=== PATIENT | female | born 1980 | race Caucasian/White ===

== ENCOUNTER 2017-01-03 10:48 | Outpatient (CLI) | payer OTHER ==
--- NOTE | 2017-01-03 14:02 | MRI Report ---
EXAM: LEFT KNEE MRI WITHOUT CONTRAST EXAM DATE: 01/03/2017 11:30 AM. CLINICAL HISTORY: LEFT KNEE PAIN. COMPARISON: None. TECHNIQUE: Multiplanar, multisequence T1-weighted and fluid-sensitive sequences of the knee without c ontrast. Other: None. FINDINGS: Cruciate ligaments: Anterior and posterior cruciate ligaments appear intact. Medial meniscus: Intact. No tear is identified. Lateral meniscus: Intact. No tear is identified. Collateral ligaments: The medial and fibular collateral ligaments appear intact. Bones and articular surfaces: Mild heterogenous signal in the patellar articular cartilage with some cartilage thinning at the lower aspect of the lateral facet. Mild cartilage thinning and superficial fissuring in the medial compartment. Marrow signal appears normal. Extensor mechanism: The patellar tendon and quadriceps insertion appear intact. Some edema and thicke ashley at the central aspect of the distal quadriceps insertion. Edema within the suprapatellar quadric eps fat pad. Miscellaneous: There is a small amount of soft tissue edema interposed between the lateral femoral co ndyle and the overlying iliotibial band. IMPRESSION: 1. Mild degenerative cartilage changes in the medial and patellofemoral compartments. 2. Soft tissue edema deep to the iliotibial band suggesting iliotibial band friction. 3. Mild focal tendinosis at the quadriceps insertion. 4. Small edema within the suprapatellar quadriceps fat pad suggesting fat pad impingement. [facility] MUSCULOSKELETAL RADIOLOGY SECTION Referring Provider Line: [phone] SITE ID: [id number]
== END 2017-01-03 10:49 | disposition home or self-care (01) ==
LOC: DI 10:48
DX: M23.92 Unspecified internal derangement of left knee (principal); M67.962 Unspecified disorder of synovium and tendon, left lower leg; R60.0 Localized edema

== ENCOUNTER 2018-11-10 07:22 | Day surgery (SDC) | payer OTHER ==
[2018-11-10] MEDS ORDERED: cefTRIAXone 2 GM VIAL ONE (07:25)
[2018-11-10] MEDS ORDERED: LACTATED RINGERS 1,000 ML IV ONE (07:30)
--- NOTE | 2018-11-10 07:41 | ANESTHESIA ---
Pre-Anesthesia VS, & Labs - Diagnosis left shoulder biceps tendinitis, labral tear - Procedure left shoulder arthroscopy, labral repair Vital Signs: Temp Pulse Resp BP Pulse Ox 36.6 C 62 16 120/76 96 11/10/18 07:31 11/10/18 07:31 11/10/18 07:31 11/10/18 07:31 11/10/18 07:31 Height 5 ft 2 in Weight (kg) 78.02 kg - NPO >8 hours - Is Patient ?: No Home Medications and Allergies Norgestimate-Ethinyl Estradiol [Ortho Tri-Cyclen 28 Tablet] 1 each PO DAILY 06/10/16 Allergies/Adverse Reactions: Allergies Allergy/AdvReac Type Severity Reaction Status Date / Time No Known Drug Allergies Allergy Verified 11/10/18 07:37 Anes History & Medical History - Anesthetic History Anesthesia Complications: reports: No previous complications Family history of Anesthesia Complications: Reports (nausea) Family history of Malignant Hyperthermia: Denies - Medical History Cardiovascular: reports: None Pulmonary: reports: None Gastrointestinal: reports: None Urinary: reports: None Musculoskeletal: reports: Other Endocrine/Autoimmune: reports: None Skin: reports: None - Surgical History Orthopedic: Shoulder arthroplasty Exam General: Alert, Oriented x3, Cooperative, No acute distress Dental: Other (chipped tooth) Mouth Openin Fingerbreadth Neck Mobility: Normal Mallampati classification: II Thyromental Distance: 4-6 cm Respiratory: Lungs clear, Normal breath sounds, No respiratory distress, No accessory muscle use Cardiovascular: Regular rate, Normal S1, Normal S2, No murmurs Mental/Cognitive Status: Alert/Oriented X3, Normal for patient Plan Anesthesia Type: General Consent for Procedure(s) Verified and Reviewed: No Code Status: Attempt Resuscitation ASA classification: 1-Healthy patient Is this case an emergency?: No
[2018-11-10] MEDS ORDERED: BUPIVACAINE 0.25% PF 10 ML VIAL ONE (07:47)
[2018-11-10] MEDS ORDERED: EPINEPHrine 1 MG/ML AMP ONE ×2 (07:47)
[2018-11-10 07:57] LABS: HCG UR QUAL NEGATIVE
[2018-11-10] MEDS ORDERED: BUPIVACAINE 0.5% PF 30 ML VIAL ONE (08:22)
[2018-11-10] MEDS ORDERED: MIDAZOLAM 2 MG/2 ML VIAL ONE (08:42)
[2018-11-10] MEDS ORDERED: ACETAMINOPHEN 1,000 MG/100 ML 100 ML IV ONE (09:53)
[2018-11-10] MEDS ORDERED: LIDOCAINE-MPF 2% 5 ML VIAL IM ONE (09:53)
[2018-11-10] MEDS ORDERED: ONDANSETRON 4 MG/2 ML VIAL IVP ONE (09:53)
[2018-11-10] MEDS ORDERED: fentaNYL 100 MCG/2 ML VIAL IVP ONE (09:53)
[2018-11-10] MEDS ORDERED: ROCURONIUM 50 MG/5 ML VIAL IVP ONE (09:53)
[2018-11-10] MEDS ORDERED: ceFAZolin 2 GM/50 ML 2 GM/50 ML BAG IV ONE (09:53)
[2018-11-10] MEDS ORDERED: PROPOFOL 200 MG/20 ML VIAL IVP ONE (09:53)
[2018-11-10] MEDS ORDERED: ePHEDrine 50 MG/ML VIAL IVP ONE (09:53)
[2018-11-10] MEDS ORDERED: BUPIVACAINE 0.25% PF 30 ML VIAL SUBQ ONE (11:25)
[2018-11-10] MEDS ORDERED: ONDANSETRON 4 MG/2 ML VIAL IVP PRN (11:53)
[2018-11-10] MEDS ORDERED: oxyCODONE 5 MG TABLET PO PRN (11:53)
--- NOTE | 2018-11-10 12:04 | OPERATIVE REPORT ---
Operative Report - Other Other Information/Narrative: Date of Surgery: 10 November 2018 Pre-Op Diagnosis: Left acromioclavicular joint arthritis, biceps tendinitis, subacromial impingement syndrome Procedure: Left shoulder arthroscopy with intra-articular labral debridement, open biceps tenodesis, open distal clavicle excision, subacromial decompression Postop Diagnosis: Same Primary Surgeon: Chad Trevino Secondary Surgeon: Car Santoyo Complications: None EBL: 25 cc IMPLANTS: Arthrex fiber tack POSTOPERATIVE PLAN: 0-2 weeks-Sling at all times. Pendulum exercises 5 times per day. 2-6 weeks-Passive and active range of motion without limitations. No active flexion of the elbow 6-12 weeks-Gradually increase strengthening focusing on rotator cuff and scapular stabilizers. 16 weeks and beyond-Introduce dynamic activities. EXAMINATION UNDER ANESTHESIA: ROM: Abduction of 160, forward flexion of 170, external rotation to 70 Anterior load and shift: Grade 1 generalized laxity Posterior load and shift: Grade 1 generalized laxity Inferior sulcus: Grade 1 generalized laxity ARTHROSCOPIC FINDINGS: Rotator interval: Intact Biceps tendon & SLAP: Medial sling appeared disrupted, SLAP tear was present. The biceps was taken and the SLAP tear was debrided Subscapularis: Intact Rotator Cuff: Slight fraying on the articular side. Bursal side was intact HAGL: None Labrum: Eagar complex was seen anteriorly. No anterior, inferior, posterior labral tears were seen. SLAP tear extended slightly posterior and this was debrided Glenoid Cartilage: Intact Humeral Head Cartilage: Intact INDICATION FOR SURGERY: 38-year-old female with insidious onset left shoulder pain consistent with subacromial impingement AC joint arthritis and biceps tendinitis. Her anterior pain was nearly completely resolved with the biceps tendon sheath injection. She is the spouse of a [employer] person and will be leaving the area in January. Nonoperative managment failed to resolve symptoms. The risks, benefits, and alternatives were discussed. Risks included pain, bleeding, infection, damage to nearby structures, lack of symptom relief, implant complications, stiffness, need for further surgeries, DVT, PE, stroke, and even . The patient signed a written consent form. PROCEDURE IN DETAIL: The patient was met in the preoperative holding on the day of the procedure. Operative extremity was signed. Consent was verified. The patient desired to proceed. Regional anesthesia was obtained in the preoperative area. The patient was brought to the operating room and surrendered to anesthesia. Once general anesthesia was obtained the patient was placed in the beach chair position. A soft kidney pad was placed. The head was secured with the neck in a neutral position. The shoulder and arm were prepped and draped in the standard fashion. A surgical timeout was held to confirm the patient identity, procedure, procedure, laterality, allergies, images, and antibiotics. All were in agreement we proceeded. A standard diagnostic arthroscopy was performed utilizing posterior and anteros uperior portals. The anterosuperior portal was created under direct visualization and localized with a spinal needle. The 7 mm cannula was placed anteriorly. The findings of the diagnostic arthroscopy can be found above. A biter was used to take the biceps tendon at its insertion into the Labrum. A shaver was then used to debride the stump back to a stable base. I then used the shaver to debride the SLAP lesion back to a stable base. I then completed the diagnostic arthroscopy by placing the scope anteriorly. SUBACROMIAL DECOMPRESSION: The instruments and cannula were then removed from the glenohumeral joint. The scope trocar was placed in the posterior portal and the acromion was felt. It was then inserted just under the acromion scraping along the bone until the CA ligament was felt. The scope trocar was then brought just lateral to the CA ligament and out the anterior incision. The cannula was then brought over the scope trocar arthroscope were inserted. The arthroscope was backed up until the shaver and arthroscope in the subacromial space. I then systemically debrided the bursa using a sucker shaver and radiofrequency ablation wand. A direct lateral incision was made and the bursectomy and decompression was completed through the lateral incision. All soft tissue was debrided from the underside of the acromion and the posterior edge of the CA ligament was lifted. Care was taken to keep the deltoid fascia intact. The rotator cuff was then evaluated and there was no full-thickness tear. The shaver was used and bur mode and I systematically removed the u nderside of the curved acromion and smoothed all prominences. Final images were taken MINI OPEN BICEPS TENODESIS: A 5 cm incision was made near the axillary fold centered over the pectoralis major tendon. Electrocautery was used to obtain hemostasis. The fascia was opened with dissection scissors. Blunt digital dissection was used to identify the intertubercular groove just under the pectoralis major tendon. The long head of the biceps tendon was visualized within this interval. The short head of the biceps was retracted with my finger and the right angle was used to deliver the tendon of the long head of the biceps out of the wound. A perez elevator was then used to debride all synovial tissue from the intertubercular groove. A fibertack was placed high within the groove. Both limbs of the fibertack were pulled on and it was well fixed. I then whipstitched the biceps tendon starting 2 cm proximal to the musculotendinous junction down to the musculotendinous junction and back up to the same 2 cm location with a single limb of the suture tack. The other suture was placed once through the tendon at the 2 cm location. I then cut all excess tendon off. The suture limb that was passed the single time was then pulled on and this reduced the tendon nicely into the groove. The elbow was fully straightened and there was no excess tension on the repair site. I then tied 7 reverse half hitches alternating to secure the tendon in its place. The wound was then irrigated copiously. OPEN DISTAL CLAVICLE EXCISION: A 5 cm incision was made in line with the clavicle, centered over the acromioclavicular joint. Electrocautery was used to obtain hemostasis. Full-thickness skin flaps were made at the level of the fascia/joint capsule. A full-thickness longitudinal was made longitudinally to open the acromioclavicular joint. Electrocautery was used to dissect the joint capsule from the bony surfaces. 2 Homans were placed around the distal clavicle. Rongeur was used to debride the intra-articular disc. A 10 mm resection was measured and performed with a sagittal saw. Care was taken to ensure this cut was parallel to the joint surface. All sharp bony edges were rounded. A finger was placed with into the defect and the arm was adducted fully without any impingement in the joint. The joint was then irrigated copiously. A watertight capsular and fascial closure was performed with 0 Vicryl. The portal sites were then closed with 3-0 Monocryl buried. The incisions for open procedures were closed with 2-0 Vicryl in the dermis and a running 3-0 Monocryl in the skin. Mastisol and Steri-Strips were applied. A sterile dressing and a sling was applied. The patient was awakened and transferred to the recovery room.
[2018-11-10] MEDS ORDERED: ONDANSETRON 4 MG/2 ML VIAL ONE (12:35)
[2018-11-10 13:12] VITALS: BP 121/79
[2018-11-10] MEDS ORDERED: oxyCODONE 5 MG TABLET ONE (13:24)
== END 2018-11-10 07:23 | disposition home or self-care (01) ==
LOC: SDS 07:22
PROVIDERS: ATTEND Orthopaedic Surgery
PROC: 0LS20ZZ Reposition Left Shoulder Tendon, Open Approach (ICD-10-PCS; 2018-11-10)
PROC: 0PBB0ZZ Excision of Left Clavicle, Open Approach (ICD-10-PCS; 2018-11-10)
PROC: 0RNK4ZZ Release Left Shoulder Joint, Percutaneous Endoscopic Approach (ICD-10-PCS; principal; 2018-11-10 08:30)
DX: M19.012 Primary osteoarthritis, left shoulder (principal); M75.22 Bicipital tendinitis, left shoulder; M75.42 Impingement syndrome of left shoulder
CPT/HCPCS: 23120; 23430; 29823; 81025; A9270; C1713; J0131; J0690; J7120